=== PATIENT | male | born 1945 | race Caucasian/White ===

== ENCOUNTER → 2018-09-10 10:53 | Outpatient (CLI) | payer MEDICARE, OTHER, SELFPAY ==
--- NOTE | 2018-09-10 11:01 | XR_ITS ---
XR chest 2V HISTORY: ITS.REASON: Acute bronchopneumonia ORDERING PHYSICIAN: Lb Covarrubias MD PATIENT AGE: 73 years Technique: PA and lateral chest COMPARISON: Previous 01/16/2016 CXR. FINDINGS: The lungs are well expanded and clear with no active disease. Heart upper normal in size with slight left ventricular configuration but unchanged. Normal pulmonary vascularity. Eladia and mediastinal structures stable. Small calcified hilar nodes with small calcified granuloma at the periphery left midlung base stable. Chest wall unremarkable. T-spine stable mild compression fracture T12 again noted. Minor apical pleural thickening bilaterally stable. . IMPRESSION. Lungs clear nothing definite acute. Stable chest. Mild chronic changes
[2018-09-10 11:18] LABS: Basophils # 0.1 K/mm3 (0-0.2); Basophils % 0.8 % (0.1-2.0); Eosinophils # 0.1 K/mm3 (0.0-0.4); Eosinophils % 1.6 % (0.1-12.0); Hemoglobin 16.4 g/dL (14.1-18.0); Lymphocytes # 0.9 K/mm3 (0.7-4.5); Lymphocytes % 11.7 % (10-50); Mean Corpuscular HGB Conc 34.1 g/dL (31.8-35.4); Mean Corpuscular Hemoglobin 32.9 pg (27.0-31.2); Mean Corpuscular Volume 96.6 fl (80-94); Mean Platelet Volume 7.6 fl (7.4-10.4); Monocytes # 0.7 K/mm3 (0.1-1.0); Monocytes % 9.1 % (1.7-9.3); Neutrophils # 5.8 K/mm3 (1.8-7.8); Neutrophils % 76.8 % (37.0-80.0); Platelet Count 273 K/mm3 (142-424); Red Blood Count 4.97 M/mm3 (4.60-6.20); Red Cell Distribution Width 14.2 % (11.5-17.5); White Blood Count 7.6 K/mm3 (4.8-10.8)
[2018-09-10 11:45] LABS: Alanine Aminotransferase 34 U/L (12-78); Albumin Level 3.7 gm/dL (3.4-5.0); Alkaline Phosphatase 118 U/L (46-116); Anion Gap 14.7 mEq/L (5-15); Aspartate Amino Transferase 28 U/L (15-37); Bilirubin,Total 0.9 mg/dL (0.2-1.0); Blood Urea Nitrogen 16 mg/dL (7-18); Calcium 9.2 mg/dL (8.5-10.1); Carbon Dioxide 26 mmol/L (21.0-32.0); Chloride 99 mmol/L (98-107); Creatinine,Serum 1.54 mg/dL (0.70-1.30); Estimated Glomerular Filt Rate 45 ml/min (>60); GFR (African American) 54 ML/MIN (>60); Globulin 3.6 gm/dl (1.3-3.2); Glucose 104 mg/dL (74-106); Potassium 3.7 mmoL/L (3.5-5.1); Sodium 136 mmol/L (136-145); Total Protein,Serum 7.3 gm/dL (6.4-8.2)
== END ==
PROVIDERS: Visit Provider Internal Medicine Adolescent Medicine
DX: J44.1 Chronic obstructive pulmonary disease with (acute) exacerbation (principal); J18.0 Bronchopneumonia, unspecified organism
CPT/HCPCS: 36415; 71046; 80053; 85025

== ENCOUNTER 2018-09-22 10:50 | Inpatient (IN) ==
[2018-09-22 11:55] LABS: Coronavirus 229E Not Detected (NotDetected); Coronavirus NL63 Not Detected (NotDetected); Coronavirus OC43 Not Detected (NotDetected); Coronovirus HKU1,PCR Not Detected (NotDetected)
[2018-09-22 12:13] LABS: Basophils % 0.2 % (0.1-2.0); Eosinophils % 0.3 % (0.1-12.0); Hematocrit 42.7 % (42.0-52.0); Hemoglobin 14.4 g/dL (14.1-18.0); Lymphocytes # 1.2 K/mm3 (0.7-4.5); Lymphocytes % 6.6 % (10-50); Mean Corpuscular HGB Conc 33.7 g/dL (31.8-35.4); Mean Corpuscular Hemoglobin 32.5 pg (27.0-31.2); Mean Corpuscular Volume 96.4 fl (80-94); Mean Platelet Volume 7.8 fl (7.4-10.4); Monocytes # 0.7 K/mm3 (0.1-1.0); Monocytes % 4.2 % (1.7-9.3); Neutrophils # 15.4 K/mm3 (1.8-7.8); Neutrophils % 88.7 % (37.0-80.0); Platelet Count 344 K/mm3 (142-424); Red Blood Count 4.43 M/mm3 (4.60-6.20); Red Cell Distribution Width 13.9 % (11.5-17.5); White Blood Count 17.4 K/mm3 (4.8-10.8)
[2018-09-22 12:40] LABS: Calcium 8.6 mg/dL (8.5-10.1)
--- NOTE | 2018-09-22 12:58 | Pharmacy Consult Notes ---
[facility] Pharmacy VTE Monitoring - Patient Demographics Admission date: 09/22/18 Report Date: 09/22/18 Time: 12:58 Allergies/Adverse Reactions: Patient Allergies No Known Drug Allergies Allergy (Unknown, Unverified 09/28/17 14:52) Height: 1.78 m Weight: 91.626 kg - VTE Risk Labs: VTE Related Lab Results Hgb 14.4 g/dL (14.1-18.0) 09/22/18 11:55 Hct 42.7 % (42.0-52.0) 09/22/18 11:55 Plt Count 344 K/mm3 (142-424) 09/22/18 11:55 BUN 25 mg/dL (7-18) H 09/22/18 11:55 Creatinine 1.66 mg/dL (0.70-1.30) H 09/22/18 11:55 Estimated Creat Clear 52 mL/min (50-200) 09/22/18 11:55 Was VTE Risk Assessment Performed: Yes VTE Score: 4 VTE Risk Level: Low Risk - Prophylaxis VTE Prophylaxis Ordered?: Yes Types of VTE Prophylaxis: TEDS Knee High Location of Applied Device: Bilateral Lower Extremeties, Not Applicable - VTE Diagnosis Confirmed Treatment or plan recommended: Continue Current Treatment
[2018-09-22 13:57] LABS: Lymphocytes % 12 % (10-50); Monocytes % 2 % (2-9); Neutrophils % 85 % (42-76); Total Cells Counted 100
[2018-09-22 13:58] LABS: RBC Morphology Normal
--- NOTE | 2018-09-22 22:05 | History & Physical Report ---
*Admission Date: 09/22/18 *Chief complaint: cough, shortness of breath, right side back pain *History of present illness: 73 yr old male with h/o pulmonary emphysema, asthma, past tobacco use seen in office today with complaints of persistent cough, thick sputum, shortness of breath and right upper back pain that is worse with movement. He was seen in office on 09/10/18 and started on doxycycline and prednisone orally for COPD exacerbation. He reports no improvement since that time actually worsening sympt oms over the past at least 48 hours. He was found to be febrile, with abnormal lung exam and increased work of breathing and was admitted for treatment of presumed community acquired pneumonia and asthma/COPD exacerbation. He does note exposure to young great-grandchildren who have had viral respiratory infections over the past couple of weeks. Medical history is significant for asthma/COPD overlap syndrome and he is followed by the pulmonology group at [facility] in [place]. Last seen there in July 2018 and takes Breo daily. Has used albuterol inhaler 2-3 times in the past week but without noted improvement. [facility] History I have reviewed the patient's past medical history: Yes Medical History: Reports:: Asthma, Atherosclerotic Heart Disease, Cancer (prostate), Chronic Obstructive Pulmonary Disease (COPD), Coronary Artery Disease, Depression, Home Oxygen (nocturnal), Hyperlipidemia, Lung Disease Denies:: Diabetes Mellitus Type 1, Diabetes Mellitus Type 2 Other Surgeries: Yes: Cardiac Catheterization, Other (bronchoscopy, mediastinoscopy, prostate surgery) Amputation: No Fractures: No - *Social History Educational Level: Completed High School Smoking Status: Former smoker (1ppd x 20 years) Tobacco Type: cigarettes Alcohol Intake: never Substance Use Type: denies use Occupational Status: employed Housing: house Household Members: spouse - Psychiatric History Expresses thoughts of harming self/others: None Suicide Plan Description: No Plan Pschychiatric History:: Reports:: Depression (on citalopram) *Family Hx:: Cancer, Heart Attack, Hyperlipidemia, Hypertension, Stroke Comment: Father - lung cancer. Mother - CHF. Latent TB. Daughter - sarcoidosis Review of Systems - Review of Systems Review of systems:: pertinent systems reviewed and negative unless documented below - Constitutional Reports body ache(s), Reports chills, Reports excessive sweating, Reports fatigue, Reports fever(s), Reports weakness, Denies anorexia, Denies night sweats - Eyes Comments: chronic vision loss left eye - ENT Reports abnormal hearing, Reports hearing loss, Reports sore throat, Denies ear pain - *Cardiovascular Reports chest pain at rest (chronic, left side, followed by cardiology at [facility]), Reports shortness of breath, Denies generalized swelling, Denies irregular heart rhythm, Denies leg swelling - *Respiratory Reports change in phlegm color, Reports chest congestion, Reports cough, Reports shortness of breath, Reports excessive phlegm production, Reports pain with cough, Denies coughing up blood, Denies pain on inspiration Comments: nocturnal oxygen use - has TAD but unable to tolerate CPAP - *Gastrointestinal Denies abdominal pain, Denies change in bowel habits - *Genitourinary Denies difficulty urinating - *Musculoskeletal Reports back pain, Reports muscle weakness, Reports body aches, Denies joint swelling, Denies muscle cramps - Integumentary/Breasts Denies rash - *Neurologic Reports tremor(s) (chronic but worse with illness) Meds Home Medications Medication Instructions Recorded Confirmed Type Albuterol Sulfate [Albuterol HFA 90 mcg PO TIDP PRN 09/22/18 09/22/18 History Inhaler] Aspirin [Aspirin 81mg EC Tab] 81 mg PO DAILY 09/22/18 09/22/18 History Atorvastatin Calcium [Atorvastatin 40 mg PO DAILY 09/22/18 09/22/18 History 40mg Tab] Calcium Polycarbophil [FiberCon 625 mg PO DAILY 09/22/18 09/22/18 History 625mg tablet] Citalopram Hydrobromide [Celexa] 10 mg PO DAILY 09/22/18 09/22/18 History Fluticasone/Vilanterol [Breo 200 mcg PO DAILY 09/22/18 09/22/18 History Ellipta 100-25 Mcg INH] Furosemide [Furosemide 20mg Tab] 20 mg PO DAILY 09/22/18 09/22/18 History Losartan Potassium [Cozaar] 50 mg PO DAILY 09/22/18 09/22/18 History Pantoprazole Sodium [Protonix 40mg 40 mg PO DAILY 09/22/18 09/22/18 History tablet] Potassium Chloride [Pot Chlor 10 10 meq PO DAILY 09/22/18 09/22/18 History mEq Tab] hydroCHLOROthiazide 12.5 mg PO DAILY 09/22/18 09/22/18 History [Hydrochlorothiazide 12.5mg Tab] Allergies Allergy/AdvReac Type Severity Reaction Status Date / Time No Known Drug Allergies Allergy Unknown Verified 09/22/18 13:33 Exam Vital signs and Labs for Last 24 Hours: Temp Pulse Resp BP Pulse Ox 98.3 F 72 17 114/61 95 09/22/18 20:00 09/22/18 20:00 09/22/18 20:00 09/22/18 20:00 09/22/18 20:00 Laboratory Results - last 24 hr 09/22/18 11:55: WBC 17.4 H, RBC 4.43 L, Hgb 14.4, Hct 42.7, MCV 96.4 H, MCH 32.5 H, MCHC 33.7, RDW 13.9, Plt Count 344, MPV 7.8, Neut % (Auto) 88.7 H, Lymph % (Auto) 6.6 L, [place] % (Auto) 4.2, Eos % (Auto) 0.3, Baso % (Auto) 0.2, Neut # (Auto) 15.4 H, Lymph # (Auto) 1.2, [place] # (Auto) 0.7, Eos # (Auto) 0.0, Baso # (Auto) 0.0, Total Counted 100, Neutrophils % (Manual) 85 H, Lymphocytes % (Manual) 12, Monocytes % (Manual) 2, Basophils % (Manual) 1.0, Platelet Estimate Normal, RBC Morphology Normal 09/22/18 11:55: Sodium 137, Potassium 3.0 L, Chloride 100, Carbon Dioxide 24, Anion Gap 16.0 H, BUN 25 H, Creatinine 1.66 H, Estimated Creat Clear 52, Estimated GFR 41 L, Est GFR ( Amer) 50 L, Glucose 99, Calcium 8.6 09/22/18 11:55: Mycoplasma pneumon IgM Non-reactive I & O for Last 24 hours: Intake & Output 09/20/18 09/21/18 09/22/18 09/23/18 11:59 11:59 11:59 11:59 Intake Total 1170 / 1170 Balance 1170 / 1170 Weight 202 lb 202 lb Microbiology Reports for the Last 24 Hours: Microbiology 09/22/18 13:10 Sputum - Expectorated Sputum Gram Stain - Final - Constitutional mild distress (with conversational dyspnea), average body habitus, cooperative - *Routine HEENT Exam Head: Present: normocephalic Eye: Present: conjunctivae pink ENT: Present: mucous membranes moist (right TM normal, left TM erythema) - *Routine Neck Exam Present: supple - *Routine Respiratory Exam Present: decreased breath sounds, prolonged expiratory phase, rales. Absent: wheezes (diffusely diminished, rales right base) - *Routine Cardiovascular Exam Present: RRR - *Routine Abdominal Exam Present: soft, normoactive bowel sounds. Absent: tenderness, distended - *Routine Extremities Exam Present: pulses intact. Absent: edema - *Routine Skin Exam Present: intact, warm. Absent: rash - *Routine Neurological Exam Present: oriented X3 - Routine Psychiatric Exam Present: normal affect Assessment and Plan (1) Asthma with COPD with exacerbation Current visit: Yes Status: Chronic Category: Medical Code(s): J44.1 - Chronic obstructive pulmonary disease with (acute) exacerbation; J45.901 - Unspecified asthma with (acute) exacerbation Start Duoneb scheduled and PRN, encourage pulmonary toilet, supplemental oxygen. Has completed PO steroids as an outpatient, no active wheezing at time of exam but consider IV steroids if wheezing recurs Followed for chronic COPD/asthma at [facility] (2) Leukocytosis Current visit: Yes Status: Acute Qualifiers: Leukocytosis type: bandemia Qualified Code(s): D72.825 - Bandemia Category: Medical Code(s): D72.829 - Elevated white blood cell count, unspecified WBC was normal when evaluated on 09/10/18, now 17.6K. Start protocol for suspec stephen bacterial infection until culture reports are available (3) Dehydration Current visit: Yes Status: Acute Category: Medical Code(s): E86.0 - Dehydration baseline creatinine 1.4-1.5, now 1.66. Gentle hydration with LR at 75ml/hr, trend creatinine (4) Hypokalemia Current visit: Yes Status: Acute Category: Medical Code(s): E87.6 - Hypokalemia LR started for maintenance, continue home PO potassium (5) Bronchiolitis Current visit: Yes Status: Acute Category: Medical Code(s): J21.9 - Acute bronchiolitis, unspecified rapid RSV testing in office is negative. Upper respiratory panel PCR is pending and won't be available until tomorrow. Treat for bacterial etiology given length of symptoms but viral etiology is certainly a consideration. Has been exposed to multiple young children with presumed viral illness.
[2018-09-23 06:58] LABS: Basophils % 0.1 % (0.1-2.0); Eosinophils % 0.4 % (0.1-12.0); Hematocrit 37.8 % (42.0-52.0); Lymphocytes # 1.3 K/mm3 (0.7-4.5); Lymphocytes % 11.8 % (10-50); Mean Corpuscular HGB Conc 33.7 g/dL (31.8-35.4); Mean Corpuscular Hemoglobin 32.6 pg (27.0-31.2); Mean Corpuscular Volume 96.6 fl (80-94); Mean Platelet Volume 7.8 fl (7.4-10.4); Monocytes # 0.5 K/mm3 (0.1-1.0); Monocytes % 4.7 % (1.7-9.3); Neutrophils # 9.3 K/mm3 (1.8-7.8); Platelet Count 293 K/mm3 (142-424); Red Blood Count 3.92 M/mm3 (4.60-6.20); Red Cell Distribution Width 13.7 % (11.5-17.5); White Blood Count 11.2 K/mm3 (4.8-10.8)
[2018-09-23 07:01] LABS: Calcium 8.2 mg/dL (8.5-10.1)
[2018-09-23 07:09] LABS: Hemoglobin 12.7 g/dL (14.1-18.0)
--- NOTE | 2018-09-23 07:18 | Progress Note ---
Internal Medicine - PN: Subj *Date: 09/23/18 *Time: 08:17 Interval history: Patient admitted overnight for failure of outpatient pneumonia treatment. Continuing to require oxygen. Tolerating p.o. intake. Complains of costal margin pain and rhomboid pain in his back. Denies fever, nausea vomiting, confusion. Current pain regimen for muscle strain not helping. Exam Vital signs and Labs for Last 24 Hours: Temp Pulse Resp BP Pulse Ox 97.8 F 67 15 136/72 96 09/23/18 04:00 09/23/18 05:37 09/23/18 04:00 09/23/18 04:00 09/23/18 05:37 Laboratory Results - last 24 hr 09/22/18 11:55: WBC 17.4 H, RBC 4.43 L, Hgb 14.4, Hct 42.7, MCV 96.4 H, MCH 32.5 H, MCHC 33.7, RDW 13.9, Plt Count 344, MPV 7.8, Neut % (Auto) 88.7 H, Lymph % (Auto) 6.6 L, [place] % (Auto) 4.2, Eos % (Auto) 0.3, Baso % (Auto) 0.2, Neut # (Auto) 15.4 H, Lymph # (Auto) 1.2, [place] # (Auto) 0.7, Eos # (Auto) 0.0, Baso # (Auto) 0.0, Total Counted 100, Neutrophils % (Manual) 85 H, Lymphocytes % (Manual) 12, Monocytes % (Manual) 2, Basophils % (Manual) 1.0, Platelet Estimate Normal, RBC Morphology Normal 09/22/18 11:55: Sodium 137, Potassium 3.0 L, Chloride 100, Carbon Dioxide 24, Anion Gap 16.0 H, BUN 25 H, Creatinine 1.66 H, Estimated Creat Clear 52, Estimated GFR 41 L, Est GFR ( Amer) 50 L, Glucose 99, Calcium 8.6 09/22/18 11:55: Mycoplasma pneumon IgM Non-reactive 09/23/18 06:20: WBC 11.2 H D, RBC 3.92 L, Hgb 12.7 L D, Hct 37.8 L, MCV 96.6 H, MCH 32.6 H, MCHC 33.7, RDW 13.7, Plt Count 293, MPV 7.8, Neut % (Auto) 83.0 H, Lymph % (Auto) 11.8, [place] % (Auto) 4.7, Eos % (Auto) 0.4, Baso % (Auto) 0.1, Neut # (Auto) 9.3 H, Lymph # (Auto) 1.3, [place] # (Auto) 0.5, Eos # (Auto) 0.0, Baso # (Auto) 0.0 09/23/18 06:20: Sodium 139, Potassium 3.0 L, Chloride 103, Carbon Dioxide 27, Anion Gap 12.0, BUN 18 D, Creatinine 1.34 H, Estimated Creat Clear 65, Estimated GFR 52 L, Est GFR ( Amer) 63 D, Glucose 119 H D, Calcium 8.2 L I & O for Last 24 hours: Intake & Output 09/20/18 09/21/18 09/22/18 09/23/18 23:59 23:59 23:59 23:59 Intake Total 1170 / 1170 100 / 100 Balance 1170 / 1170 100 / 100 Weight 91.626 kg 92.164 kg Microbiology Reports for the Last 24 Hours: Microbiology 09/22/18 13:10 Sputum - Expectorated Sputum Gram Stain - Final 09/22/18 13:10 Sputum - Expectorated Sputum Sputum Culture - Preliminary Gram Negative Rods - Constitutional mild distress - *Routine HEENT Exam Head: Present: normocephalic, atraumatic Eye: Present: EOMI, PERRL ENT: Present: mucous membranes moist - *Routine Neck Exam Present: supple, full ROM. Absent: JVD - *Routine Respiratory Exam Present: CTA bilaterally, prolonged expiratory phase. Absent: wheezes, crackles - *Routine Cardiovascular Exam Present: RRR, Normal S1, Normal S2 - *Routine Abdominal Exam Present: soft, normoactive bowel sounds - *Routine Rectal Exam Patient deferred: visual exam - *Routine Exam Patient deferred: penile exam - *Routine Extremities Exam Absent: cyanosis, clubbing, edema - *Routine Skin Exam Present: intact. Absent: cyanosis, erythema - *Routine Neurological Exam Present: alert, oriented X3. Absent: altered mental status Assessment and Plan (1) Asthma with COPD with exacerbation Current visit: Yes Status: Chronic Category: Medical Code(s): J44.1 - Chronic obstructive pulmonary disease with (acute) exacerbation; J45.901 - Unspecified asthma with (acute) exacerbation (2) Leukocytosis Current visit: Yes Status: Acute Qualifiers: Leukocytosis type: bandemia Qualified Code(s): D72.825 - Bandemia Category: Medical Code(s): D72.829 - Elevated white blood cell count, unspecified (3) Dehydration Current visit: Yes Status: Acute Category: Medical Code(s): E86.0 - Dehydration (4) Hypokalemia Current visit: Yes Status: Acute Category: Medical Code(s): E87.6 - Hypokalemia (5) Bronchiolitis Current visit: Yes Status: Acute Category: Medical Code(s): J21.9 - Acute bronchiolitis, unspecified - Assessment and plan all Dx Assessment and Plan for all problems:: Continue antibiotics as prescribed. Initiate steroids. Increase pain regimen. Continues to require inpatient management for failed outpatient treatment.
[2018-09-24 06:34] LABS: Basophils % 0.1 % (0.1-2.0); Eosinophils # 0.1 K/mm3 (0.0-0.4); Eosinophils % 0.4 % (0.1-12.0); Hematocrit 39.2 % (42.0-52.0); Hemoglobin 12.8 g/dL (14.1-18.0); Lymphocytes # 1.6 K/mm3 (0.7-4.5); Lymphocytes % 11.2 % (10-50); Mean Corpuscular HGB Conc 32.5 g/dL (31.8-35.4); Mean Corpuscular Volume 98.5 fl (80-94); Monocytes # 0.6 K/mm3 (0.1-1.0); Monocytes % 3.7 % (1.7-9.3); Neutrophils # 12.3 K/mm3 (1.8-7.8); Neutrophils % 84.5 % (37.0-80.0); Platelet Count 305 K/mm3 (142-424); Red Blood Count 3.98 M/mm3 (4.60-6.20); Red Cell Distribution Width 13.4 % (11.5-17.5); White Blood Count 14.6 K/mm3 (4.8-10.8)
[2018-09-24 06:41] LABS: Anion Gap 12.6 mEq/L (5-15); Calcium 8.3 mg/dL (8.5-10.1); Potassium 3.6 mmoL/L (3.5-5.1)
--- NOTE | 2018-09-24 07:58 | Discharge Summary ---
General - General Admission date:: 09/22/18 Discharge date: 09/24/18 HPI HPI: 73 yr old male with h/o pulmonary emphysema, asthma, past tobacco use seen in office today with complaints of persistent cough, thick sputum, shortness of breath and right upper back pain that is worse with movement. He was seen in office on 09/10/18 and started on doxycycline and prednisone orally for COPD exacerbation. He reports no improvement since that time actually worsening symptoms over the past at least 48 hours. He was found to be febrile, with abnormal lung exam and increased work of breathing and was admitted for treatment of presumed community acquired pneumonia and asthma/COPD exacerbation. He does note exposure to young great-grandchildren who have had viral respiratory infections over the past couple of weeks. Medical history is significant for asthma/COPD overlap syndrome and he is followed by the pulmonology group at [facility] in [place]. Last seen there in July 2018 and takes Breo daily. Has used albuterol inhaler 2-3 times in the past week but without noted improvement. Hospital Course Hospital Course: Patient was admitted, placed on broad-spectrum antibiotics and improved and a slow but stepwise fashion. Oxygen requirement diminished. Patient was given intravenous steroids for his wheezing which improved, as well as ibuprofen for his pleuritic type costal chest pain. This improved also. Of note renal function improved in the hospital with improving creatinines. This morning the patient was in better spirits. 97% oxygen on room air, much improved lung exam. He will be discharged home on antibiotics, steroids and rest over the next 3 short-term follow-up in our office per Objective Vital signs: Temp Pulse Resp BP Pulse Ox 97.8 F 62 20 129/78 94 L 09/24/18 04:00 09/24/18 06:29 09/24/18 04:00 09/24/18 04:00 09/24/18 06:29 Narrative: Patient is awake, alert. Oropharynx clear, noted. Essential tremor in hands noted as previously. Lungs have good air movement, some atelectatic sounds in both bases but vastly improved over admission. Heart rate regular without murmurs. Abdomen soft, no edema, clubbing or cyanosis noted. Results Labs on day of discharge: Labs from last 24 hours 09/24/18 09/24/18 09/22/18 06:26 06:26 11:45 WBC 14.6 H D RBC 3.98 L Hgb 12.8 L Hct 39.2 L MCV 98.5 H MCH 32.0 H MCHC 32.5 RDW 13.4 Plt Count 305 MPV 8.0 Neut % (Auto) 84.5 H Lymph % (Auto) 11.2 [place] % (Auto) 3.7 Eos % (Auto) 0.4 Baso % (Auto) 0.1 Neut # (Auto) 12.3 H Lymph # (Auto) 1.6 [place] # (Auto) 0.6 Eos # (Auto) 0.1 Baso # (Auto) 0.0 Sodium 139 Potassium 3.6 Chloride 105 Carbon Dioxide 25 Anion Gap 12.6 BUN 18 Creatinine 1.19 Estimated Creat Clear 74 Estimated GFR 60 Est GFR ( Amer) 73 Glucose 107 H Calcium 8.3 L Magnesium 2.2 Chlamy pneumoniae PCR Not detected Adenovirus (PCR) Not detected B. pertussis DNA (PCR) Not detected Coronavirus OC43 (PCR) Not detected Coronavirus HKU1 (PCR) Not detected Coronavirus 229E (PCR) Not detected Coronavirus NL63 (PCR) Not detected Human Metapneumovir PCR Not detected Influenza A (H1) PCR Not detected Influ A (H1N1/09) PCR Not detected Influenza A (H3) PCR Not detected Influenza Type A (PCR) Not detected Influenza Type B (PCR) Not detected M. pneumoniae (PCR) Not detected Parainfluenza 1 (PCR) Not detected Parainfluenza 2 (PCR) Not detected Parainfluenza 3 (PCR) Not detected Parainfluenza 4 (PCR) Not detected RSV (PCR) Not detected Entero/Rhino (PCR) Not detected Preliminary micro results at discharge 09/22/18 13:10 Sputum Culture - Preliminary Sputum - Expectorated Sputum Escherichia coli DS: Diagnosis - Discharge Diagnosis (1) Asthma with COPD with exacerbation Status: Chronic (2) Leukocytosis Status: Resolved (3) Dehydration Status: Resolved (4) Hypokalemia Status: Resolved (5) Bronchiolitis Status: Resolved Discharge Plan - Patient Discharge Instructions ACTIVITY: Continue current activity DIET: continue same diet Patient Instructions: DI for Pneumonia -- Adult - Follow up Plan Follow up with: Ceci Ontiveros APRN [Nurse Practitioner] - 09/29/18 Disposition: Home, Self-Assisted Medications: Home Medications Medication Instructions Recorded Confirmed Type Albuterol Sulfate [Albuterol HFA 2 puffs IH QIDP PRN 09/22/18 09/23/18 History Inhaler] Aspirin [Aspirin 81mg EC Tab] 81 mg PO DAILY 09/22/18 09/22/18 History Atorvastatin Calcium [Atorvastatin 40 mg PO HS 09/22/18 09/23/18 History 40mg Tab] Calcium Polycarbophil [FiberCon 625 mg PO DAILY 09/22/18 09/22/18 History 625mg tablet] Citalopram Hydrobromide [Celexa] 10 mg PO DAILY 09/22/18 09/22/18 History Fluticasone/Vilanterol [Breo 1 puff PO DAILY 09/22/18 09/23/18 History Ellipta 100-25 Mcg INH] Furosemide [Furosemide 20mg Tab] 20 mg PO DAILY 09/22/18 09/22/18 History Losartan Potassium [Cozaar] 50 mg PO DAILY 09/22/18 09/22/18 History Pantoprazole Sodium [Protonix 40mg 40 mg PO DAILY 09/22/18 09/22/18 History tablet] Potassium Chloride [Pot Chlor 10 10 meq PO DAILY 09/22/18 09/22/18 History mEq Tab] hydroCHLOROthiazide 12.5 mg PO DAILY 09/22/18 09/22/18 History [Hydrochlorothiazide 12.5mg Tab] Prescriptions/Medication Reconciliation: New Azithromycin [Zithromax 250mg tab] 250 mg PO DIRECTED #6 tab Cefdinir [Omnicef 300mg Capsule] 300 mg PO BID #14 cap predniSONE [Deltasone 20mg tablet] 20 mg PO BID 7 Days #14 tab Ibuprofen [Ibuprofen 600mg Tablet] 600 mg PO TIDP PRN #30 tab PRN Reason: Breakthru Moderate Pain Continue Aspirin [Aspirin 81mg EC Tab] 81 mg PO DAILY Albuterol Sulfate [Albuterol HFA Inhaler] 2 puffs IH QIDP PRN PRN Reason: pulmonary emphysema Atorvastatin Calcium [Atorvastatin 40mg Tab] 40 mg PO HS Losartan Potassium [Cozaar] 50 mg PO DAILY hydroCHLOROthiazide [Hydrochlorothiazide 12.5mg Tab] 12.5 mg PO DAILY Pantoprazole Sodium [Protonix 40mg tablet] 40 mg PO DAILY Citalopram Hydrobromide [Celexa] 10 mg PO DAILY Potassium Chloride [Pot Chlor 10 mEq Tab] 10 meq PO DAILY Furosemide [Furosemide 20mg Tab] 20 mg PO DAILY Calcium Polycarbophil [FiberCon 625mg tablet] 625 mg PO DAILY Fluticasone/Vilanterol [Breo Ellipta 100-25 Mcg INH] 1 puff PO DAILY
== END 2018-09-24 09:33 | disposition home or self-care (01) ==
LOC: 2ND 10:57
PROVIDERS: ADMIT Internal Medicine Adolescent Medicine; ATTEND Internal Medicine Adolescent Medicine
CPT/HCPCS: 36415; 71020; 71046; 80048; 83735; 85007; 85025; 86738; 87040; 87070; 87077; 87186; 87205; 87486; 87581; 87633; 87798; 94640; 94761; J0456

== ENCOUNTER → 2018-11-30 11:42 | Outpatient (CLI) | payer MEDICARE, OTHER, SELFPAY | PROVIDERS: Visit Provider Nurse Practitioner Family | DX: J45.909 Unspecified asthma, uncomplicated (principal) ==

== ENCOUNTER → 2018-12-19 13:03 | Outpatient (CLI) | payer MEDICARE, OTHER, SELFPAY ==
[2018-12-19 13:59] LABS: Anion Gap 14.2 mEq/L (5-15); Blood Urea Nitrogen 19 mg/dL (7-18); Calcium 9.5 mg/dL (8.5-10.1); Carbon Dioxide 29 mmol/L (21.0-32.0); Chloride 98 mmol/L (98-107); Estimated Glomerular Filt Rate 35 ml/min (>60); GFR (African American) 42 ML/MIN (>60); Glucose 107 mg/dL (74-106); Potassium 3.2 mmoL/L (3.5-5.1); Sodium 138 mmol/L (136-145)
== END ==
PROVIDERS: Visit Provider Internal Medicine Cardiovascular Disease
DX: E78.2 Mixed hyperlipidemia (principal)
CPT/HCPCS: 36415; 80048

== ENCOUNTER → 2019-02-01 13:30 | Outpatient (CLI) | payer MEDICARE, OTHER, SELFPAY ==
[2019-02-01 14:35] LABS: Basophils % 0.5 % (0.1-2.0); Eosinophils # 0.1 K/mm3 (0.0-0.4); Eosinophils % 1.4 % (0.1-12.0); Hematocrit 45.5 % (42.0-52.0); Hemoglobin 14.8 g/dL (14.1-18.0); Lymphocytes # 1.2 K/mm3 (0.7-4.5); Lymphocytes % 15.9 % (10-50); Mean Corpuscular HGB Conc 32.6 g/dL (31.8-35.4); Mean Corpuscular Hemoglobin 30.6 pg (27.0-31.2); Mean Corpuscular Volume 93.7 fl (80-94); Mean Platelet Volume 8.4 fl (7.4-10.4); Monocytes # 0.4 K/mm3 (0.1-1.0); Neutrophils # 5.7 K/mm3 (1.8-7.8); Neutrophils % 77.1 % (37.0-80.0); Platelet Count 266 K/mm3 (142-424); Red Blood Count 4.86 M/mm3 (4.60-6.20); Red Cell Distribution Width 13.6 % (11.5-17.5); White Blood Count 7.3 K/mm3 (4.8-10.8)
[2019-02-01 15:34] LABS: Anion Gap 12.8 mEq/L (5-15); Blood Urea Nitrogen 20 mg/dL (7-18); Calcium 8.8 mg/dL (8.5-10.1); Carbon Dioxide 26 mmol/L (21.0-32.0); Chloride 105 mmol/L (98-107); Creatinine,Serum 1.42 mg/dL (0.70-1.30); Estimated Glomerular Filt Rate 49 ml/min (>60); GFR (African American) 59 ML/MIN (>60); Glucose 115 mg/dL (74-106); Phosphorous 2.7 mg/dL (2.4-4.9); Potassium 3.8 mmoL/L (3.5-5.1); Sodium 140 mmol/L (136-145)
== END ==
PROVIDERS: Visit Provider Nurse Practitioner Family
DX: N18.3 Chronic kidney disease, stage 3 (moderate) (principal)
CPT/HCPCS: 36415; 80048; 83735; 84100; 85025

== ENCOUNTER → 2019-08-31 07:00 | Outpatient (CLI) | payer MEDICARE, OTHER, SELFPAY | PROVIDERS: Visit Provider Nurse Practitioner Family | DX: R05 Cough (principal) | CPT/HCPCS: 87205 ==

== ENCOUNTER → 2019-09-06 11:01 | Outpatient (CLI) | payer MEDICARE, OTHER, SELFPAY | PROVIDERS: Visit Provider Nurse Practitioner Family | DX: R05 Cough (principal) | CPT/HCPCS: 87070; 87205 ==

== ENCOUNTER → 2020-08-15 12:27 | Outpatient (CLI) | payer MEDICARE, OTHER, SELFPAY ==
[2020-08-15 13:46] LABS: Adenovirus,PCR Not Detected (NotDetected); Bordetella Pertussis Not Detected (NotDetected); Chlamydophila Pneumoniae, PCR Not Detected (NotDetected); Coronavirus 229E Not Detected (NotDetected); Coronavirus NL63 Not Detected (NotDetected); Coronavirus OC43 Not Detected (NotDetected); Coronovirus HKU1,PCR Not Detected (NotDetected); Human Metapneumovirus Not Detected (NotDetected); Influenza A, PCR Not Detected (NotDetected); Influenza AH1, 2009 Not Detected (NotDetected); Influenza AH1, PCR Not Detected (NotDetected); Influenza AH3,PCR Not Detected (NotDetected); Influenza B, PCR Not Detected (NotDetected); Mycoplasma Pneumoniae, PCR Not Detected (NotDetected); Parainfluenza 1, PCR Not Detected (NotDetected); Parainfluenza 2, PCR Not Detected (NotDetected); Parainfluenza 3, PCR Not Detected (NotDetected); Parainfluenza 4, PCR Not Detected (NotDetected); Respiratory Syncytial Virus Not Detected (NotDetected); Rhinovirus/Enterovirus Not Detected (NotDetected)
[2020-08-15 18:36] LABS: Coronavirus 19, PCR Detected (NotDetected)
== END ==
PROVIDERS: PCP Internal Medicine Adolescent Medicine; Visit Provider Nurse Practitioner Family
DX: Z20.828 Contact with and (suspected) exposure to other viral communicable diseases (principal); U07.1 COVID-19; R50.9 Fever, unspecified; R05 Cough
CPT/HCPCS: 87581; 87633; 87798